=== PATIENT | female | born 1975 | race African-American/Black ===

== ENCOUNTER 2019-07-25 08:52 | Inpatient (IN) ==
[2019-07-25] MEDS ORDERED: KETOROLAC 30 MG/1 ML VIAL IV STA (10:23)
[2019-07-25 11:25] LABS: Basophils # 0.1 10*3/uL (0.0-0.2); Basophils % 0.6 % (0.0-0.8); Eosinophils % 0.5 % (0.00-10.9); Hematocrit 40.4 VOL% (35.7-47.0); Immature Granulocytes % 0.4 %; Immature Granulocytes Absolute 0.03 #; Lymphocytes # 1.3 10*3/uL (1.4-4.0); Lymphocytes % 16.1 % (21.3-54.2); Mean Corpuscular HGB Conc 32.2 GM/DL (32-36); Mean Corpuscular Volume 91.4 FL (87-102); Mean Platelet Volume 9.9 FL (9.6-12.0); Monocytes % 8.8 % (1.7-12.7); Neutrophils % 73.6 % (38.7-73.9); Platelet Count 240 T/CUMM (130-400); Red Blood Count 4.42 MC/CUMM (3.8-5.5); Red Cell Distribution Width 12.8 % (9.3-17.3); White Blood Count 8.2 T/CUMM (4-12)
[2019-07-25 11:40] LABS: Calcium 8.8 MG/DL (8.5-10.1); Osmolality,Calculated 268.1 MOS/KG (273-304)
[2019-07-25] MEDS ORDERED: CLINDAMYCIN INJ 900 MG in PREMIX 1 EACH IV STA (12:43)
[2019-07-25] MEDS ORDERED: CLINDAMYCIN INJ 50 ML IV ONE (12:54)
[2019-07-25] MEDS ORDERED: PROMETHAZINE 25 MG/1 ML VIAL IM PRN (13:24)
[2019-07-25] MEDS ORDERED: NICOTINE 21 MG/24 HR PATCH TRANSDERM PRN (13:24)
[2019-07-25] MEDS ORDERED: POTASSIUM CHLORIDE 20 MEQ TABLET PO STA (13:24)
[2019-07-25] MEDS ORDERED: diphenhydrAMINE CAP 25 MG CAPSULE PO PRN (13:24)
[2019-07-25] MEDS ORDERED: BISACODYL 5 MG TABLET PO PRN (13:24)
[2019-07-25] MEDS ORDERED: ONDANSETRON 4 MG/2 ML VIAL IV PRN (13:24)
[2019-07-25] MEDS ORDERED: traZODone 50 MG TABLET PO PRN (13:24)
[2019-07-25] MEDS: SODIUM CHLORIDE 0.9% 1,000 ML IV SCH ×2 (14:26→21:08)
[2019-07-25] MEDS: CLINDAMYCIN INJ 600 MG in PREMIX 1 EACH IV SCH ×2 (14:26→21:14)
[2019-07-25] MEDS: LEVOFLOXACIN INJ 750 MG in PREMIX 1 EACH IV SCH (14:29)
[2019-07-25] MEDS ORDERED: LEVOFLOXACIN INJ 150 ML IV ONE (14:29)
[2019-07-25] MEDS ORDERED: oxyCODONE/ACETAMINOPHEN 5-325 MG TABLET PO PRN (15:12)
[2019-07-25 15:56] LABS: Risk Ratio 2.07; Thyroid Stimulating Hormone 0.383 uIU/ml (0.358-3.74)
[2019-07-25] MEDS: oxyCODONE/ACETAMINOPHEN 5-325 MG TABLET PO PRN (21:03)
[2019-07-25] MEDS: ENOXAPARIN 40 MG/0.4 ML SYRINGE SUBCUT SCH (21:03)
[2019-07-26] MEDS: oxyCODONE/ACETAMINOPHEN 5-325 MG TABLET PO PRN ×2 (01:11→11:48)
[2019-07-26 03:08] LABS: Barbiturates Screen,Urine Negative (Negative); Benzodiazepines Screen,Urine Negative (Negative); Cannabinoid Screen,Urine Positive (Negative); Opiate Screen,Urine Positive (Negative); Phencyclidine Screen,Urine Negative (Negative)
[2019-07-26] MEDS: CLINDAMYCIN INJ 600 MG in PREMIX 1 EACH IV SCH ×3 (05:56→21:35)
[2019-07-26] MEDS: SODIUM CHLORIDE 0.9% 1,000 ML IV SCH ×2 (06:01→16:33)
[2019-07-26 06:18] LABS: Calcium 8.1 MG/DL (8.5-10.1); Osmolality,Calculated 272.7 MOS/KG (273-304)
[2019-07-26] MEDS ORDERED: POTASSIUM CHLORIDE 20 MEQ TABLET PO ONE (07:12)
[2019-07-26] MEDS: PANTOPRAZOLE 40 MG TABLET PO SCH (08:27)
[2019-07-26] MEDS: amLODIPine 5 MG TABLET PO SCH (08:27)
[2019-07-26] MEDS: ENALAPRIL 20 MG TABLET PO SCH (08:27)
[2019-07-26] MEDS: LEVOFLOXACIN INJ 750 MG in PREMIX 1 EACH IV SCH (14:03)
[2019-07-26] MEDS: ENOXAPARIN 40 MG/0.4 ML SYRINGE SUBCUT SCH (21:40)
[2019-07-27] MEDS: SODIUM CHLORIDE 0.9% 1,000 ML IV SCH ×3 (03:59→14:46)
[2019-07-27] MEDS: CLINDAMYCIN INJ 600 MG in PREMIX 1 EACH IV SCH ×3 (05:36→22:27)
[2019-07-27 06:21] LABS: Calcium 8.2 MG/DL (8.5-10.1); Osmolality,Calculated 271.7 MOS/KG (273-304)
[2019-07-27] MEDS: ENALAPRIL 20 MG TABLET PO SCH (09:01)
[2019-07-27] MEDS: PANTOPRAZOLE 40 MG TABLET PO SCH (09:01)
[2019-07-27] MEDS: amLODIPine 5 MG TABLET PO SCH (09:01)
[2019-07-27] MEDS: oxyCODONE/ACETAMINOPHEN 5-325 MG TABLET PO PRN ×2 (11:49→22:25)
[2019-07-27] MEDS: ENOXAPARIN 40 MG/0.4 ML SYRINGE SUBCUT SCH (22:26)
[2019-07-28] MEDS: CLINDAMYCIN INJ 600 MG in PREMIX 1 EACH IV SCH (05:12)
[2019-07-28] MEDS: SODIUM CHLORIDE 0.9% 1,000 ML IV SCH ×2 (05:12→08:25)
[2019-07-28] MEDS: amLODIPine 5 MG TABLET PO SCH (08:22)
[2019-07-28] MEDS: PANTOPRAZOLE 40 MG TABLET PO SCH (08:22)
[2019-07-28] MEDS: ENALAPRIL 20 MG TABLET PO SCH (08:22)
[2019-07-28] MEDS ORDERED: FLUCONAZOLE 150 MG TABLET PO ONE (11:36)
[2019-07-28 11:42] VITALS: BP 152/93
== END 2019-07-28 13:07 | disposition home or self-care (01) | DRG 158 ==
LOC: N.ED 08:52 → N.EDINP 08:52 → N.5E 13:24
PROVIDERS: ADMIT Internal Medicine; ATTEND Internal Medicine

== ENCOUNTER 2020-09-24 15:06 | Observation (INO) ==
[2020-09-24] MEDS ORDERED: methylPREDNISolone SOD SUC 125 MG/2 ML VIAL IV STA (15:42)
[2020-09-24 16:14] LABS: Basophils % 0.2 % (0.0-0.8); Eosinophils # 0.2 10*3/uL (0.0-0.87); Eosinophils % 1.9 % (0.00-10.9); Hematocrit 38.5 VOL% (35.7-47.0); Hemoglobin 12.6 GM/DL (12.0-16.0); Immature Granulocytes % 0.2 %; Immature Granulocytes Absolute 0.02 #; Lymphocytes # 2.9 10*3/uL (1.4-4.0); Lymphocytes % 32.8 % (21.3-54.2); Mean Corpuscular HGB Conc 32.7 GM/DL (32-36); Mean Platelet Volume 9.7 FL (9.6-12.0); Monocytes % 5.6 % (1.7-12.7); Neutrophils % 59.3 % (38.7-73.9); Platelet Count 267 T/CUMM (130-400); Red Blood Count 4.23 MC/CUMM (3.8-5.5); Red Cell Distribution Width 13.2 % (9.3-17.3); White Blood Count 8.9 T/CUMM (4-12)
[2020-09-24 16:40] LABS: Alanine Aminotransferase 18 U/L (13-56); Albumin 3.4 G/DL (3.4-5.0); Alkaline Phosphatase 88 U/L (45-117); Aspartate Amino Transferase 13 U/L (0-37); Bilirubin,Total < 0.39 MG/DL (0.2-1.0); Blood Urea Nitrogen 14 MG/DL (7-18); Calcium 8.2 MG/DL (8.5-10.1); Carbon Dioxide 25 MMOL/L (21-32); Estimated Glom Filtration Rate 108 ML/MIN; Glucose 97 MG/DL (74-106); Osmolality,Calculated 277.5 MOS/KG (273-304); Potassium 3.5 MMOL/L (3.5-5.1); Sodium 139 MMOL/L (136-145); Total Protein 6.9 G/DL (6.4-8.2)
[2020-09-24] MEDS ORDERED: DEXTROSE 50% 25 GM/50 ML VIAL IV PRN (16:43)
[2020-09-24] MEDS ORDERED: GLUCAGON 1 MG VIAL IM PRN (16:43)
[2020-09-24] MEDS ORDERED: ENOXAPARIN 40 MG/0.4 ML SYRINGE SUBCUT SCH (17:00)
[2020-09-24] MEDS ORDERED: CETIRIZINE 10 MG TABLET PO PRN (17:23)
[2020-09-24] MEDS: FAMOTIDINE 20 MG TABLET PO SCH (20:57)
[2020-09-24] MEDS ORDERED: MONTELUKAST 10 MG TABLET PO SCH (21:00)
[2020-09-24] MEDS ORDERED: CLORAZEPATE 3.75 MG TABLET PO ONE (21:33)
[2020-09-25 07:18] LABS: Basophils % 0.1 % (0.0-0.8); Hematocrit 38.4 VOL% (35.7-47.0); Hemoglobin 12.9 GM/DL (12.0-16.0); Immature Granulocytes % 0.5 %; Immature Granulocytes Absolute 0.05 #; Lymphocytes # 0.9 10*3/uL (1.4-4.0); Lymphocytes % 8.5 % (21.3-54.2); Mean Corpuscular HGB Conc 33.6 GM/DL (32-36); Mean Corpuscular Volume 89.3 FL (87-102); Mean Platelet Volume 10.4 FL (9.6-12.0); Monocytes % 4.2 % (1.7-12.7); Neutrophils % 86.7 % (38.7-73.9); Platelet Count 261 T/CUMM (130-400); Red Cell Distribution Width 12.9 % (9.3-17.3); White Blood Count 10.1 T/CUMM (4-12)
[2020-09-25 07:45] LABS: Calcium 8.4 MG/DL (8.5-10.1); Potassium 4.4 MMOL/L (3.5-5.1); Thyroid Stimulating Hormone 0.245 uIU/ml (0.358-3.74)
[2020-09-25 08:35] VITALS: BP 129/84
[2020-09-25] MEDS ORDERED: amLODIPine 5 MG TABLET PO SCH (09:00)
[2020-09-25] MEDS ORDERED: predniSONE 20 MG TABLET PO SCH (09:00)
[2020-09-25] MEDS: FAMOTIDINE 20 MG TABLET PO SCH (09:28)
== END 2020-09-25 13:42 | disposition home or self-care (01) ==
LOC: N.EDINP 15:06 → N.ED 15:06 → N.EDINP 19:35 → N.TELES 19:45
PROVIDERS: ADMIT Internal Medicine; ATTEND Internal Medicine